=== PATIENT | male | born 1965 | race Caucasian/White ===

== ENCOUNTER → 2016-12-07 | Day surgery (SDC) | payer OTHER ==
[~2016-12-07] MED LIST: AGGRENOX 25 MG1 EACH PO; LIPITOR80 M1 PO; TOPROL XL25 M2 PO
[2016-12-07 06:30] LABS: ABSOLUTE BASOPHIL COUNT 0.1 /CUMM (0.0-0.2); ABSOLUTE EOSINOPHIL COUNT 0.2 /CUMM (0.0-0.7); ABSOLUTE GRANULOCYTE CT 6.5 /CUMM (1.4-6.5); ABSOLUTE LYMPH COUNT 4.7 /CUMM (1.2-3.4); ABSOLUTE MONOCYTE COUNT 0.7 /CUMM (0.10-0.60); BASOPHIL % 0.8 % (0.0-2.0); EOSINOPHIL % 1.3 % (0-5); GRANULOCYTE % 53.4 % (42.2-75.2); HEMATOCRIT 50.7 % (42-52); MEAN CORPUSCULAR HGB 30.3 PG (27.0-31.0); MEAN CORPUSCULAR HGB CONC 32.9 G/DL (33.0-37.0); MEAN CORPUSCULAR VOLUME 92.2 FL (80.0-94.0); MEAN PLATELET VOLUME 7.5 FL (7.4-10.4); PLATELET COUNT 228 /CUMM (130-400); RBC DISTRIBUTION WIDTH 14.4 % (11.5-14.5); WHITE BLOOD CELL COUNT 12.2 /CUMM (4.8-10.8)
--- NOTE | 2016-12-07 11:22 | Operative Report ---
Operative/Inv Procedure Report Surgery Date: 12/07/16 Name of Procedure: Laparoscopic left inguinal hernia repair Pre-Operative Diagnosis: Left inguinal hernia Post-Operative Diagnosis: Same Estimated Blood Loss: scant Surgeon/Facilities And Grounds Director: PILO MENDOZA,NUZHAT Brown/Cecilia GUERRERO Anesthesia: general endotracheal tube Implants: Parietex mesh Operative/Procedure Note Note: After consent is brought to the operating room laid supine. Gen. anesthesia was obtained and his abdomen was prepped and draped. Skin was anesthetized with local anesthesia and a transverse infraumbilical incision made sharply. We identified the left-sided rectus fascia and incised transversely. Stay sutures were placed. Rectus muscle was retracted laterally and a dissecting balloon placed posterior to it. Inflated under direct vision the camera replaced a blunt Green port. Gas was instilled. 2, 5 mm ports were placed in from vocal midline after local anesthesia was instilled and under direct vision and camera. Began or dissection at the pubis and delineated the symphysis. Albert's ligament was identified. There is a very large direct hernia it was dissected free and reflected inferiorly. Then dissected laterally and developed the iliopubic tract. The cord structures were circumferentially dissected there is no indirect hernia. Once the dissection was completed a left-sided piece of Parietex mesh was placed in the cavity. It was placed around the cord structures re-create the internal ring and cover the femoral indirect spaces as well. Due to the size of the defect the mesh was fixed to his pelvis using the absorbable tackers. 1 tacked placed in the Albert's ligament and the other 2 superior medially. Gas was allowed to escape on maintaining proper orientation of the mesh. The fascia was closed with 0 Vicryl suture. Skin incisions closed with 4-0 Vicryl. Steri-Strips and sterile dressing applied. Sponge and needle counts are correct. He along drain Findings: Large direct CC: CARIDAD MENDOZA,JESUSITA
== END ==
LOC: STS 01:54
PROVIDERS: Surgery
DX: K40.90 Unilateral inguinal hernia, without obstruction or gangrene, not specified as recurrent (principal); E11.9 Type 2 diabetes mellitus without complications; Z79.84 Long term (current) use of oral hypoglycemic drugs; I25.810 Atherosclerosis of coronary artery bypass graft(s) without angina pectoris; F17.200 Nicotine dependence, unspecified, uncomplicated; Z95.1 Presence of aortocoronary bypass graft
CPT/HCPCS: 36415; 93005; 93010; C1781; J0131; J0690; J2250